=== PATIENT | male | born 1955 | race African-American/Black ===

== ENCOUNTER 2024-09-06 13:18 | Emergency (ER) | payer OTHER ==
[~2024-09-06] VITALS: Ht 175.3 cm; Wt 80.0 kg
[2024-09-06 13:21] VITALS: O2SAT 98
[2024-09-06 14:22] LABS: CHLORIDE 97 mEq/L (98-107); POTASSIUM 3.9 mEq/L (3.5-5.1); SODIUM 130 mEq/L (136-145)
[2024-09-06 14:23] LABS: CARBON DIOXIDE 21 mEq/L (21-32)
[2024-09-06 14:25] LABS: HEMATOCRIT. 38.7 % (42.0-52.0); MEAN CORPUSCULAR HEMOGLOBIN 27.5 pg (28.0-32.0); MEAN CORPUSCULAR HGB CONC 33.7 g/dL (31.0-37.0); MEAN CORPUSCULAR VOLUME 81.4 fL (80.0-94.0); MEAN PLATELET VOLUME 8.9 fl (7.4-10.4); PLATELET 121 x1000/uL (130-400); RED BLOOD CELL COUNT 4.75 mill/uL (4.7-6.1); WHITE BLOOD COUNT 8.8 x1000/uL (4.5-11.0)
[2024-09-06 14:28] LABS: DIFFERENTIAL COMMENT 1; GLUCOSE 159 mg/dL (70-105)
[2024-09-06 14:29] LABS: UREA NITROGEN BLOOD 24 mg/dL (9-23)
[2024-09-06 14:30] LABS: TROPONIN I HIGH SENSITIVITY 23 ng/L (3.0-53)
[2024-09-06 15:00] LABS: ANISOCYTOSIS 1+; PLATELET ESTIMATE SLIGHTLY DECREASED
[2024-09-06] MEDS: SODIUM CHLORIDE 0.9% 1,000 ML IV ONE (15:03)
[2024-09-06] MEDS: IBUPROFEN 600MG TABLET PO ONE (15:22)
[2024-09-06] MEDS: ACETAMINOPHEN 500MG TABLET PO ONE (15:22)
[2024-09-06 15:42] LABS: CLARITY URINE CLEAR (CLEAR); COLOR URINE YELLOW (YELLOW); GLUCOSE URINE NEGATIVE (NEGATIVE); KETONES URINE 2+ (NEGATIVE); LEUKOCYTE ESTERASE URINE NEGATIVE (NEGATIVE); NITRITE URINE NEGATIVE (NEGATIVE); OCCULT BLOOD URINE 3+ (NEGATIVE); PH URINE 5.5 (4.5-8.0); PROTEIN URINE 2+ (NEGATIVE); SPECIFIC GRAVITY URINE 1.016 (1.005-1.030)
[2024-09-06 15:56] LABS: BACTERIA URINE 2+; SQUAMOUS EPITHELIAL CELL URINE NONE SEEN /lpf (RARE/1+); YEAST URINE NONE SEEN
[2024-09-06 17:46] LABS: INFLUENZA TYPE A Presumptive Negative (Pres. Neg.); INFLUENZA TYPE B Presumptive Negative (Pres. Neg.)
[2024-09-06 18:03] VITALS: BP 130/79; PULSE 80; RESP 17; TEMP 39.6; O2SAT 98
== END 2024-09-06 18:47 | disposition left against medical advice (07) ==
LOC: ER 13:18
DX: G25.0 Essential tremor (principal); E03.9 Hypothyroidism, unspecified; Z53.29 Procedure and treatment not carried out because of patient's decision for other reasons; Z20.822 Contact with and (suspected) exposure to COVID-19
CPT/HCPCS: 36415; 71045; 80048; 81003; 84484; 85025; 87426; 87804; 96360; 96361; 99285